=== PATIENT | female | born 1935 | race Caucasian/White ===

== ENCOUNTER 2019-08-31 | Emergency (ER) | payer MEDICARE, BC ==
[~2019-08-31] MED LIST: AMOXICILLIN500 MG OR; ASPIRIN EC81 MG PO; CIPROFLOXACN500 MG PO; CLONIDINE0.1 MG PO; ELIQUIS2.5 MG PO; HYDROCHLOROT12.5 MG PO; LISINOP/HCTZ1 TA2 PO; LISINOP/HCTZ1 TAB PO; LISINOPRIL5 MG PO; LOPRESSOR 550 MG/TAB PO; LORTAB 10 PO; MUCINEX1200 MG OR; PRAVASTATIN10 MG PO; PYRIDIUM200 MG PO; ULTRAM50 M1 PO
[2019-08-31 16:37] LABS: HEMATOCRIT 42.6 % (37.0-47.0); IMMATURE GRANULOCYTES 0.5 % (0.0-5.0); MEAN CELL VOLUME 88.2 fL CALC (80.0-100.0); MEAN CORPUSCULAR HGB CONC 32.9 g/dL CAL (32.0-36.0); NEUT# 9.15 thou/uL (2.00-7.15); RED BLOOD COUNT 4.83 mill/uL (4.20-5.60); RED CELL DISTRI WIDTH 14.4 % (11.5-15.5)
[2019-08-31 16:56] LABS: ALBUMIN 3.6 g/dL (3.2-5.0); ALKALINE PHOSPHATASE 124 u/l (38-126); ANION GAP 11 (6-22 (CALC)); BILIRUBIN, TOTAL 1.4 mg/dL (0.0-1.4); BUN 16 mg/dL (8-23); BUN/CREATININE RATIO 20 (12-20 (CALC)); CARBON DIOXIDE 25 mmol/l (22-30); CHLORIDE 101 mmol/l (95-108); CREATININE 0.8 mg/dL (0.5-1.0); GFR > 60 ML/MIN (>=60 (CALC)); GFR FOR AFR.AMER. > 60 ML/MIN (>=60 (CALC)); LIPASE 94 u/l (23-300); POTASSIUM 3.8 mmol/l (3.5-5.1); SGOT/AST 39 u/l (9-36); SODIUM 133 mmol/l (137-146); TOTAL PROTEIN 6.7 g/dL (6.3-8.2)
[2019-08-31 17:39] LABS: URINE BILIRUBIN - DIPSTICK NEGATIVE (NEGATIVE); URINE BLOOD DIPSTICK TRACE-INTACT (NEGATIVE); URINE COLOR YELLOW; URINE GLUCOSE - DIPSTICK NEGATIVE (NEGATIVE); URINE KETONE 15 mg/dL (NEGATIVE); URINE LEUK ESTERASE NEGATIVE (NEGATIVE); URINE PH 6.5 (4.5-8.0); URINE PROTEIN - DIPSTICK NEGATIVE (NEG-TRACE)
[2019-08-31 18:08] LABS: URINE NITRITE - DIPSTICK POSITIVE (Negative)
[2019-08-31] MEDS ORDERED: OMNI-PAC300 MG PO (18:13)
[2019-08-31 18:19] LABS: URINE BACTERIA FEW hpf; URINE SQUAMOUS EPITHELIAL CELL FEW EPI/hpf (0-FEW)
[2019-08-31] MEDS ORDERED: ZPAK PO (18:39)
== END 2019-08-31 18:57 | disposition home or self-care (01) ==
PROVIDERS: Family Medicine
DX: N39.0 Urinary tract infection, site not specified (principal); J18.9 Pneumonia, unspecified organism; Z20.828 Contact with and (suspected) exposure to other viral communicable diseases

== ENCOUNTER 2019-09-06 08:42 | Emergency (ER) | payer MEDICARE, BC ==
[~2019-09-06 08:42] MED LIST changes: +OMNI-PAC300 MG PO; +ZPAK PO
[2019-09-06] MEDS ORDERED: MOTRIN400 MG PO ×2 (10:25)
[2019-09-06] MEDS ORDERED: TRAMADOL HYDROC50 M1 PO ×2 (10:25)
[2019-09-06 10:36] VITALS: BP 177/86
== END 2019-09-06 10:55 | disposition home or self-care (01) ==
LOC: ED 08:42
DX: M25.561 Pain in right knee (principal); W01.0XXA Fall on same level from slipping, tripping and stumbling without subsequent striking against object, initial encounter; Y92.009 Unspecified place in unspecified non-institutional (private) residence as the place of occurrence of the external cause
CPT/HCPCS: L1830

== ENCOUNTER 2020-01-17 01:54 | Inpatient (IN) | payer MEDICARE, BC ==
[~2020-01-17] VITALS: Ht 154.9 cm; Wt 96.0 kg
[~2020-01-17 01:54] MED LIST changes: +MOTRIN400 MG PO; +TRAMADOL HYDROC50 M1 PO
--- NOTE | 2020-01-17 02:19 | NUR ---
PATIENT BROUGHT TO ED BY EMS FROM HOME WHERE SHE LIVES ALONE, PATIENT STATES THAT FOR THE LAST 3 NIGHTS SHE HAS FALLEN ASLEEPIN HER RECLINER AND WOKEN UP ON THE FLOOR, PATIENT STATES THAT SHE IS UNABLE TO GET HERSELF OFF THE FLOOR, SKIN TEAR TO RIGHT FOREARM.
[2020-01-17 02:29] LABS: HEMATOCRIT 36.2 % (37.0-47.0); HEMOGLOBIN 11.4 g/dl (12.0-16.0); IMMATURE GRANULOCYTES 0.5 % (0.0-5.0); MEAN CELL VOLUME 96.3 fL CALC (80.0-100.0); MEAN CORPUSCULAR HGB 30.3 pG CALC (26.0-32.0); MEAN CORPUSCULAR HGB CONC 31.5 g/dL CAL (32.0-36.0); NEUT# 4.31 thou/uL (2.00-7.15); RED BLOOD COUNT 3.76 mill/uL (4.20-5.60)
[2020-01-17 02:50] LABS: ALBUMIN 3.2 g/dL (3.2-5.0); BILIRUBIN, TOTAL 0.9 mg/dL (0.0-1.4); CREATININE 1.2 mg/dL (0.5-1.0); MAGNESIUM 2.2 mg/dL (1.6-2.3); TOTAL PROTEIN 5.9 g/dL (6.3-8.2)
[2020-01-17 02:51] LABS: POTASSIUM 4.7 mmol/l (3.5-5.1)
[2020-01-17 03:20] LABS: TSH, 3RD GENERATION 1.58 uIU/mL (0.47 - 4.68)
--- NOTE | 2020-01-17 03:40 | NUR ---
PATIENT PROVIDED URINE SAMPLE VIA BEDPAN, NO C/O PAIN OR DISCOMFRT, NO S/S OF DISTRESS, RESPIRATIONS EVENA DNUNALBORED, AWAKE AND ALERT, PATIENT ABLE TO ROLL SIDE TO SIDE WITH ASSITANCE. LEG WRAPS APPLIED BY HOME HEALTH NURSE TO ASSIST WITH EDEMA PER THE PATIENT.
--- NOTE | 2020-01-17 04:39 | NUR ---
HAND OFF REPORT GIVEN TO BOBBY FOR INPATIENT TREATMENT.
[2020-01-17 04:50] VITALS: BP 113/83
[2020-01-17 05:09] LABS: URINE BILIRUBIN - DIPSTICK NEGATIVE (NEGATIVE); URINE BLOOD DIPSTICK NEGATIVE (NEGATIVE); URINE COLOR YELLOW; URINE GLUCOSE - DIPSTICK NEGATIVE (NEGATIVE); URINE KETONE NEGATIVE (NEGATIVE); URINE LEUK ESTERASE NEGATIVE (NEGATIVE); URINE NITRITE - DIPSTICK NEGATIVE (Negative); URINE PH 5.5 (4.5-8.0); URINE PROTEIN - DIPSTICK NEGATIVE (NEG-TRACE); URINE UROBILINOGEN - DIPSTICK 0.2 E.U./dL (0.2)
[2020-01-17 08:25] VITALS: BP 98/54
--- NOTE | 2020-01-17 08:25 | NUR ---
ASSESSMENT IS COMPLETED: IV SITE IS FREE FROM REDNESS OR EDEMA. HR IS REG,PULSES ARE STRONG X4, ABD IS SOFT WITH ACTIVE BS. BREATH SOUNDS ARE CLEAR,BILATERALLY. GENERALIZED WEEPING. CONTINUE TO OBSERVE AND MONITOR.
[2020-01-17] MEDS ORDERED: LISINOPRIL20 M1 PO (12:39)
[2020-01-17] MEDS ORDERED: PRAVASTATIN20 MG PO (12:39)
[2020-01-17] MEDS ORDERED: POT CHLORIDE10 ME5 PO (12:40)
[2020-01-17] MEDS ORDERED: LASIX 40 MG TAB40 MG PO (12:40)
--- NOTE | 2020-01-17 12:45 | NUR ---
PT HAS BEEN RELAXING IN BED WITH NO DISTRESS NOTED. IV SITE IS FREE FROM REDNESS OR EDEMA. FAMILY IN TO VISIT WITH PT.
[2020-01-17 15:16] VITALS: BP 94/54
--- NOTE | 2020-01-17 16:50 | NUR ---
PT HAS BEEN RELAXING IN BED WITH NO DISTRESS NOTED IV SITE IS FREE FROM REDNESS OR EDEMA. PT C/O LEGS "HURTING A LITTLE" REQUEST A PILLOW TO ELEVATE. COMPRESSION STOCKINGS WERE PLACED BY CHRISTIAN SULTANA.
[2020-01-17 19:00] VITALS: BP 94/52
--- NOTE | 2020-01-18 00:46 | NUR ---
Patient in bed beginning of shift, resp. even and unlabored. Afebrile. No SOB noted. Teds in place, BLE elevated on pillow. Mccurdy catheter replaced due to leaking of urine, 18FR in place with clear, yellow urine output. No pain states, discomfort on coccyx, redness noted. 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 IV site Left wrist, intact and flush well. Barrier cream applied with repositioning. Fluids encouraged. Safety measures in place with call light in reach.
[2020-01-18 04:00] VITALS: BP 99/43
[2020-01-18 05:50] LABS: HEMATOCRIT 34.1 % (37.0-47.0); HEMOGLOBIN 10.6 g/dl (12.0-16.0); IMMATURE GRANULOCYTES 0.3 % (0.0-5.0); MEAN CELL VOLUME 95.8 fL CALC (80.0-100.0); MEAN CORPUSCULAR HGB 29.8 pG CALC (26.0-32.0); MEAN CORPUSCULAR HGB CONC 31.1 g/dL CAL (32.0-36.0); NEUT# 3.52 thou/uL (2.00-7.15); RED BLOOD COUNT 3.56 mill/uL (4.20-5.60); RED CELL DISTRI WIDTH 14.8 % (11.5-15.5)
[2020-01-18 06:18] LABS: ALBUMIN 2.6 g/dL (3.2-5.0); BILIRUBIN, TOTAL 0.7 mg/dL (0.0-1.4); CREATININE 1.2 mg/dL (0.5-1.0); POTASSIUM 3.9 mmol/l (3.5-5.1); TOTAL PROTEIN 4.8 g/dL (6.3-8.2)
[2020-01-18 07:55] VITALS: BP 109/71
--- NOTE | 2020-01-18 07:55 | NUR ---
ASSESSMENT IS COMPLETED: IV SITE IS FREE FROM REDNESS OR EDEMA. HR IS REG,PULSES ARE STRONG X4, ABD IS SOFT WITH ACTIVE BS. BREATH SOUNDS ARE CLEAR, BILATERALLY, READ DRAINING YELLOW URINE. DINO HOSE INTACT. CONTINUE TO OSBERVE AND MONTIOR.
--- NOTE | 2020-01-18 10:30 | NUR ---
DR TALBOT IN TO VISIT WITH PT.
--- NOTE | 2020-01-18 12:50 | NUR ---
PT IS SITTING IN THE CHAIR NO DISTRESS NOTED. IV SITE IS FREE FROM REDNESS OR EDEMA., CONTINUE TO OSBERVE AND MONITOR.
[2020-01-18 15:00] VITALS: BP 120/75
--- NOTE | 2020-01-18 16:02 | NUR ---
PT IS SITTING IN THE CHAIR, NO DISTRESS NOTED. IV SITE IS FREE FROM REDNESS OR EDEMA. READ REMOVED AND PT TOLERATED WELL. CONTINUE TO OBSERVE AND MONITOR.
--- NOTE | 2020-01-18 16:02 | NUR ---
DISCONTINEUD READ CATHETER INTACT. EMPTIED 250ML YELLOW URINE. CONTINUE TO OSBERVE AND MONITOR.
--- NOTE | 2020-01-18 16:42 | NUR ---
IV SITE HAS BEEN DISCONTINEUD CATHETER INTACT. DISCHARGE INSTRUCTIONS GIVEN TO PT. VERBALIZED UNDERSTANDING. Discharge instructions given. Patient verbalizes understanding of same. Discharged in stable condition via Wheelchair to Home with family. All belongings sent with pt.
--- NOTE | 2020-01-27 12:02 | NUR ---
Post discharge pneumonia follow up call completed today, 01/27/20/ Pt. states she is doing very well. HH is seeing patient 3 times a week and the therapist is coming once a week. No fever, chills, sob, or fatigue. Pt. is taking prescribed medications without incident. Pt. has a follow up appt with PCP next week. No needs or questions at this time. Appreciative of call.
== END 2020-01-18 16:55 | disposition home health service (06) | DRG 194 ==
LOC: ED 01:54 → ED-I 03:42 → ED 03:43 → MS2 03:43
PROVIDERS: Family Medicine; Nurse Practitioner; ADMIT Internal Medicine; ATTEND Internal Medicine
PROC: 0T9B70Z Drainage of Bladder with Drainage Device, Via Natural or Artificial Opening (ICD-10-PCS; principal; 2020-01-17)
DX: J18.9 Pneumonia, unspecified organism (principal); I13.0 Hypertensive heart and chronic kidney disease with heart failure and stage 1 through stage 4 chronic kidney disease, or unspecified chronic kidney disease; E46 Unspecified protein-calorie malnutrition; Z68.41 Body mass index [BMI] 40.0-44.9, adult; R60.0 Localized edema; R26.89 Other abnormalities of gait and mobility; I50.9 Heart failure, unspecified; N18.9 Chronic kidney disease, unspecified; I73.9 Peripheral vascular disease, unspecified; S70.312A Abrasion, left thigh, initial encounter; I48.91 Unspecified atrial fibrillation; E78.5 Hyperlipidemia, unspecified; D64.9 Anemia, unspecified; I25.10 Atherosclerotic heart disease of native coronary artery without angina pectoris; B35.1 Tinea unguium; X58.XXXA Exposure to other specified factors, initial encounter; Z91.81 History of falling; Z20.828 Contact with and (suspected) exposure to other viral communicable diseases

== ENCOUNTER 2020-02-11 18:06 | Emergency (ER) | payer MEDICARE, BC ==
[~2020-02-11] VITALS: Ht 154.9 cm; Wt 95.0 kg
[~2020-02-11 18:06] MED LIST changes: +LASIX 40 MG TAB40 MG PO; +LISINOPRIL20 M1 PO; +POT CHLORIDE10 ME5 PO; +PRAVASTATIN20 MG PO
[2020-02-11 19:04] LABS: HEMOGLOBIN 12.1 g/dl (12.0-16.0); IMMATURE GRANULOCYTES 0.5 % (0.0-5.0); MEAN CELL VOLUME 94.2 fL CALC (80.0-100.0); MEAN CORPUSCULAR HGB 29.2 pG CALC (26.0-32.0); NEUT# 4.9 thou/uL (2.00-7.15); RED BLOOD COUNT 4.14 mill/uL (4.20-5.60); RED CELL DISTRI WIDTH 14.3 % (11.5-15.5)
[2020-02-11 19:21] LABS: ALKALINE PHOSPHATASE 154 u/l (38-126); ANION GAP 10 (6-22 (CALC)); BUN 23 mg/dL (8-23); BUN/CREATININE RATIO 22 (12-20 (CALC)); CARBON DIOXIDE 27 mmol/l (22-30); CHLORIDE 100 mmol/l (95-108); GFR 53 ML/MIN (>=60 (CALC)); GFR FOR AFR.AMER. > 60 ML/MIN (>=60 (CALC)); SGOT/AST 39 u/l (9-36); SODIUM 132 mmol/l (137-146)
[2020-02-11 19:23] LABS: ALBUMIN 3.8 g/dL (3.2-5.0); BILIRUBIN, TOTAL 1.1 mg/dL (0.0-1.4); TOTAL PROTEIN 6.7 g/dL (6.3-8.2)
[2020-02-11 19:33] LABS: MYOGLOBIN 82 ng/mL (0 - 62)
[2020-02-11 21:04] VITALS: BP 123/70
[2020-02-11 21:23] LABS: TSH, 3RD GENERATION 0.95 uIU/mL (0.47 - 4.68)
== END 2020-02-11 21:46 | disposition short-term general hospital (02) ==
LOC: ED 18:06
PROVIDERS: Emergency Medicine
DX: R91.8 Other nonspecific abnormal finding of lung field (principal); J18.9 Pneumonia, unspecified organism; J39.8 Other specified diseases of upper respiratory tract; I10 Essential (primary) hypertension; I25.10 Atherosclerotic heart disease of native coronary artery without angina pectoris; E78.5 Hyperlipidemia, unspecified; E66.9 Obesity, unspecified; S20.223A Contusion of bilateral back wall of thorax, initial encounter; X58.XXXA Exposure to other specified factors, initial encounter; Z20.828 Contact with and (suspected) exposure to other viral communicable diseases

== ENCOUNTER 2020-05-21 09:48 | Emergency (ER) | payer MEDICARE, BC ==
[~2020-05-21] VITALS: Ht 154.9 cm; Wt 82.2 kg
[2020-05-21 11:05] LABS: HEMATOCRIT 41.5 % (37.0-47.0); IMMATURE GRANULOCYTES 0.2 % (0.0-5.0); MEAN CELL VOLUME 93.3 fL CALC (80.0-100.0); MEAN CORPUSCULAR HGB 29.2 pG CALC (26.0-32.0); MEAN CORPUSCULAR HGB CONC 31.3 g/dL CAL (32.0-36.0); NEUT# 3.06 thou/uL (2.00-7.15); RED BLOOD COUNT 4.45 mill/uL (4.20-5.60); RED CELL DISTRI WIDTH 15.1 % (11.5-15.5)
[2020-05-21 11:23] LABS: ALBUMIN 3.5 g/dL (3.2-5.0); ALKALINE PHOSPHATASE 153 u/l (38-126); ANION GAP 9 (6-22 (CALC)); BILIRUBIN, TOTAL 0.8 mg/dL (0.0-1.4); BUN 16 mg/dL (8-23); BUN/CREATININE RATIO 17 (12-20 (CALC)); CARBON DIOXIDE 27 mmol/l (22-30); CHLORIDE 106 mmol/l (95-108); CREATININE 0.9 mg/dL (0.5-1.0); GFR 60 ML/MIN (>=60 (CALC)); GFR FOR AFR.AMER. > 60 ML/MIN (>=60 (CALC)); LIPASE 166 u/l (23-300); POTASSIUM 4.2 mmol/l (3.5-5.1); SGOT/AST 24 u/l (9-36); SODIUM 139 mmol/l (137-146); TOTAL PROTEIN 6.2 g/dL (6.3-8.2)
[2020-05-21 13:03] LABS: URINE BILIRUBIN - DIPSTICK NEGATIVE (NEGATIVE); URINE BLOOD DIPSTICK TRACE-INTACT (NEGATIVE); URINE COLOR YELLOW; URINE GLUCOSE - DIPSTICK NEGATIVE (NEGATIVE); URINE KETONE NEGATIVE (NEGATIVE); URINE LEUK ESTERASE NEGATIVE (NEGATIVE); URINE NITRITE - DIPSTICK NEGATIVE (Negative); URINE PH 6.5 (4.5-8.0); URINE PROTEIN - DIPSTICK NEGATIVE (NEG-TRACE); URINE UROBILINOGEN - DIPSTICK 0.2 E.U./dL (0.2)
[2020-05-21 14:00] VITALS: BP 145/87
== END 2020-05-21 14:00 | disposition home or self-care (01) ==
LOC: ED 09:48
PROVIDERS: Family Medicine
DX: Z20.822 Contact with and (suspected) exposure to COVID-19 (principal); I10 Essential (primary) hypertension; I25.10 Atherosclerotic heart disease of native coronary artery without angina pectoris; E78.5 Hyperlipidemia, unspecified; R44.0 Auditory hallucinations

== ENCOUNTER 2022-01-05 17:34 | Observation (INO) | payer MEDICARE, BC ==
[2022-01-05] VITALS (10 sets, daily range): BP systolic 107–155; BP diastolic 56–86
[~2022-01-05] VITALS: Ht 154.9 cm; Wt 75.4 kg
[2022-01-05 18:03] LABS: HEMATOCRIT 40.2 % (37.0-47.0); HEMOGLOBIN 13.1 g/dl (12.0-16.0); IMMATURE GRANULOCYTES 0.7 % (0.0-5.0); MEAN CELL VOLUME 94.6 fL CALC (80.0-100.0); MEAN CORPUSCULAR HGB 30.8 pG CALC (26.0-32.0); MEAN CORPUSCULAR HGB CONC 32.6 g/dL CAL (32.0-36.0); NEUT# 2.66 thou/uL (2.00-7.15); RED BLOOD COUNT 4.25 mill/uL (4.20-5.60); RED CELL DISTRI WIDTH 14.4 % (11.5-15.5)
[2022-01-05 18:13] LABS: ALKALINE PHOSPHATASE 127 u/l (38-126); ANION GAP 13 (6-22 (CALC)); BILIRUBIN, TOTAL 0.7 mg/dL (0.0-1.4); BUN 16 mg/dL (8-23); BUN/CREATININE RATIO 17 (12-20 (CALC)); CARBON DIOXIDE 27 mmol/l (22-30); CHLORIDE 104 mmol/l (95-108); CREATININE 0.9 mg/dL (0.5-1.0); GFR FOR AFR.AMER. > 60 ML/MIN (>=60 (CALC)); GFR OTHER RACES 59 ML/MIN (>=60 (CALC)); MAGNESIUM 2.3 mg/dL (1.6-2.3); SGOT/AST 24 u/l (9-36); SODIUM 140 mmol/l (137-146); TOTAL PROTEIN 6.5 g/dL (6.3-8.2)
[2022-01-05] MEDS ORDERED: METOPROL TAR25 MG PO (20:08)
[2022-01-05] MEDS ORDERED: PRAVASTATIN20 MG PO (20:08)
[2022-01-05] MEDS ORDERED: LISINOPRIL20 M1 PO (20:09)
[2022-01-05] MEDS ORDERED: ELIQUIS2.5 MG PO (20:10)
[2022-01-05] MEDS ORDERED: K-TABS10 MEQ PO (20:11)
[2022-01-05] MEDS ORDERED: VENLAFAXINE HCL25 MG PO (20:11)
[2022-01-05] MEDS ORDERED: LASIX20 MG PO (20:12)
[2022-01-06] VITALS (14 sets, daily range): BP systolic 102–177; BP diastolic 60–119
[2022-01-06 06:33] LABS: HEMATOCRIT 37.7 % (37.0-47.0); HEMOGLOBIN 12.3 g/dl (12.0-16.0); IMMATURE GRANULOCYTES 0.4 % (0.0-5.0); MEAN CELL VOLUME 93.8 fL CALC (80.0-100.0); MEAN CORPUSCULAR HGB 30.6 pG CALC (26.0-32.0); MEAN CORPUSCULAR HGB CONC 32.6 g/dL CAL (32.0-36.0); NEUT# 3.21 thou/uL (2.00-7.15); RED BLOOD COUNT 4.02 mill/uL (4.20-5.60); RED CELL DISTRI WIDTH 14.4 % (11.5-15.5)
[2022-01-06 06:47] LABS: ALBUMIN 3.2 g/dL (3.2-5.0); ALKALINE PHOSPHATASE 106 u/l (38-126); ANION GAP 10 (6-22 (CALC)); BILIRUBIN, TOTAL 0.6 mg/dL (0.0-1.4); BUN 14 mg/dL (8-23); BUN/CREATININE RATIO 15 (12-20 (CALC)); CARBON DIOXIDE 26 mmol/l (22-30); CHLORIDE 107 mmol/l (95-108); CREATININE 0.9 mg/dL (0.5-1.0); GFR FOR AFR.AMER. > 60 ML/MIN (>=60 (CALC)); GFR OTHER RACES 59 ML/MIN (>=60 (CALC)); MAGNESIUM 2.2 mg/dL (1.6-2.3); POTASSIUM 4.1 mmol/l (3.5-5.1); SGOT/AST 21 u/l (9-36); SODIUM 139 mmol/l (137-146); TOTAL PROTEIN 5.5 g/dL (6.3-8.2)
[2022-01-06 12:19] LABS: URINE BILIRUBIN - DIPSTICK NEGATIVE (NEGATIVE); URINE BLOOD DIPSTICK NEGATIVE (NEGATIVE); URINE COLOR YELLOW; URINE GLUCOSE - DIPSTICK NEGATIVE (NEGATIVE); URINE KETONE NEGATIVE (NEGATIVE); URINE PH 8.5 (4.5-8.0); URINE PROTEIN - DIPSTICK TRACE mg/dL (NEG-TRACE)
[2022-01-06 12:20] LABS: URINE LEUK ESTERASE SMALL (NEGATIVE); URINE NITRITE - DIPSTICK NEGATIVE (Negative)
[2022-01-06 12:21] LABS: URINE BACTERIA FEW hpf; URINE EPITHELIAL CELLS FEW EPI/hpf (0-FEW)
== END 2022-01-06 16:30 | disposition home health service (06) ==
LOC: ED 17:34 → ED-I 19:38 → ED 20:08 → ICU 20:09
PROVIDERS: Nurse Practitioner; ADMIT Internal Medicine; ATTEND Internal Medicine
PROC: 0HQ0XZZ Repair Scalp Skin, External Approach (ICD-10-PCS; principal; 2022-01-05)
DX: S01.01XA Laceration without foreign body of scalp, initial encounter (principal); I11.0 Hypertensive heart disease with heart failure; I50.9 Heart failure, unspecified; I48.91 Unspecified atrial fibrillation; I25.10 Atherosclerotic heart disease of native coronary artery without angina pectoris; E78.5 Hyperlipidemia, unspecified; W18.30XA Fall on same level, unspecified, initial encounter; Y92.009 Unspecified place in unspecified non-institutional (private) residence as the place of occurrence of the external cause; Z79.01 Long term (current) use of anticoagulants; Z20.822 Contact with and (suspected) exposure to COVID-19

== ENCOUNTER 2022-01-22 11:03 | Emergency (ER) | payer MEDICARE, BC ==
[~2022-01-22] VITALS: Ht 154.9 cm; Wt 77.5 kg
[2022-01-22] VITALS (9 sets, daily range): BP systolic 125–155; BP diastolic 73–103
[~2022-01-22 11:03] MED LIST changes: +K-TABS10 MEQ PO; +LASIX20 MG PO; +METOPROL TAR25 MG PO; +VENLAFAXINE HCL25 MG PO
== END 2022-01-22 13:12 | disposition home or self-care (01) ==
LOC: ED 11:03
DX: S52.531A Colles' fracture of right radius, initial encounter for closed fracture (principal); S52.601A Unspecified fracture of lower end of right ulna, initial encounter for closed fracture; S51.011A Laceration without foreign body of right elbow, initial encounter; S81.811A Laceration without foreign body, right lower leg, initial encounter; I10 Essential (primary) hypertension; I25.10 Atherosclerotic heart disease of native coronary artery without angina pectoris; E78.5 Hyperlipidemia, unspecified; W01.0XXA Fall on same level from slipping, tripping and stumbling without subsequent striking against object, initial encounter; Y92.009 Unspecified place in unspecified non-institutional (private) residence as the place of occurrence of the external cause

== ENCOUNTER 2022-01-24 09:47 | Observation (INO) | payer MEDICARE, BC ==
[~2022-01-24] VITALS: Ht 154.9 cm; Wt 64.0 kg
[2022-01-24] VITALS (26 sets, daily range): BP systolic 96–143; BP diastolic 52–103
--- NOTE | 2022-01-24 10:17 | NUR ---
PT ED RM 9, NO DISTRESS
[2022-01-24 10:28] LABS: HEMATOCRIT 39.6 % (37.0-47.0); HEMOGLOBIN 12.5 g/dl (12.0-16.0); IMMATURE GRANULOCYTES 0.2 % (0.0-5.0); MEAN CELL VOLUME 96.6 fL CALC (80.0-100.0); MEAN CORPUSCULAR HGB 30.5 pG CALC (26.0-32.0); MEAN CORPUSCULAR HGB CONC 31.6 g/dL CAL (32.0-36.0); NEUT# 8.23 thou/uL (2.00-7.15); RED BLOOD COUNT 4.1 mill/uL (4.20-5.60); RED CELL DISTRI WIDTH 14.6 % (11.5-15.5)
[2022-01-24 10:39] LABS: ALBUMIN 3.4 g/dL (3.2-5.0); ALKALINE PHOSPHATASE 118 u/l (38-126); ANION GAP 15 (6-22 (CALC)); BUN 15 mg/dL (8-23); BUN/CREATININE RATIO 19 (12-20 (CALC)); CARBON DIOXIDE 23 mmol/l (22-30); CHLORIDE 106 mmol/l (95-108); CREATININE 0.8 mg/dL (0.5-1.0); GFR FOR AFR.AMER. > 60 ML/MIN (>=60 (CALC)); GFR OTHER RACES > 60 ML/MIN (>=60 (CALC)); LIPASE 59 u/l (23-300); POTASSIUM 3.9 mmol/l (3.5-5.1); SGOT/AST 33 u/l (9-36); SODIUM 140 mmol/l (137-146); TOTAL PROTEIN 6.1 g/dL (6.3-8.2)
[2022-01-24] MEDS ORDERED: LASIX 80 MG TAB80 MG PO (11:05)
[2022-01-24] MEDS ORDERED: LISINOPRIL2.5 MG PO (11:06)
[2022-01-24] MEDS ORDERED: PRAVASTATIN10 MG PO (11:06)
[2022-01-24] MEDS ORDERED: ELIQUIS2.5 MG PO (11:06)
[2022-01-24] MEDS ORDERED: POTASSI19 PO (11:07)
[2022-01-24] MEDS ORDERED: VENLAFAXINE HCL75 M1 PO (11:07)
[2022-01-24] MEDS ORDERED: METOPROL TAR25 MG PO (11:08)
--- NOTE | 2022-01-24 16:11 | NUR ---
patient repositioned fo comfort. patient supine in no distress
[2022-01-24 16:37] LABS: URINE BLOOD DIPSTICK NEGATIVE (NEGATIVE); URINE COLOR YELLOW; URINE GLUCOSE - DIPSTICK NEGATIVE (NEGATIVE); URINE KETONE 15 mg/dL (NEGATIVE); URINE LEUK ESTERASE NEGATIVE (NEGATIVE); URINE PROTEIN - DIPSTICK 30 mg/dL (NEG-TRACE); URINE SPECIFIC GRAVITY 1.015
[2022-01-24 16:38] LABS: URINE BILIRUBIN - DIPSTICK SMALL (NEGATIVE)
[2022-01-24 16:39] LABS: URINE NITRITE - DIPSTICK NEGATIVE (Negative)
[2022-01-24 16:54] LABS: URINE AMORPH SEDIMENT MANY hpf (NONE-FEW); URINE SQUAMOUS EPITHELIAL CELL FEW EPI/hpf (0-FEW); URINE TRIP PHOS CRYSTALS FEW lpf
--- NOTE | 2022-01-24 18:47 | NUR ---
86 year old Patient received this afternoon from the ED for general weakness and fatigue , Pt states that she has not felt good for a whole and has been fallen at home , she has a right wrist fracture encasted from a previous fall. On admission to the unit Pt is AOx3 denies any oain at this time ,VSS , no signs of destress noted at this time.fall precaution initiated and ongoing , hydration started as per MD , continue to monitor Pt
[2022-01-25 04:00] VITALS: BP 147/49
[2022-01-25 06:24] VITALS: BP 142/62
--- NOTE | 2022-01-25 07:23 | NUR ---
received Ptin bed asleep,,easily arousable , no SS of ditress noted at this time, safety precaution ongoing, continue to monitor patient
[2022-01-25 16:53] VITALS: BP 140/82
[2022-01-25 18:54] VITALS: BP 129/69
--- NOTE | 2022-01-25 19:36 | NUR ---
Report received from am RN. Pt sitting up in bed, eating dinner. In no apparent distress. Will monitor.
[2022-01-26 00:05] VITALS: BP 114/68
--- NOTE | 2022-01-26 03:14 | NUR ---
Pt appears to be asleep. Resps even and unlaboured. No noted complaints. Safety maintained. Will monitor.
[2022-01-26 03:52] VITALS: BP 129/65
[2022-01-26 12:06] VITALS: BP 127/73
== END 2022-01-26 15:29 ==
LOC: ED 09:47 → ED-I 12:00 → ED 12:20 → MS2 12:21
PROVIDERS: Family Medicine; ADMIT Internal Medicine; ATTEND Internal Medicine
DX: R53.1 Weakness (principal); R26.81 Unsteadiness on feet; S62.101D Fracture of unspecified carpal bone, right wrist, subsequent encounter for fracture with routine healing; I11.0 Hypertensive heart disease with heart failure; I50.9 Heart failure, unspecified; I48.91 Unspecified atrial fibrillation; I25.10 Atherosclerotic heart disease of native coronary artery without angina pectoris; E78.5 Hyperlipidemia, unspecified; W19.XXXD Unspecified fall, subsequent encounter; Z60.2 Problems related to living alone; Z79.01 Long term (current) use of anticoagulants; Z91.81 History of falling; Z20.822 Contact with and (suspected) exposure to COVID-19
CPT/HCPCS: G0378